=== PATIENT | female | born 1990 | race Caucasian/White ===

== ENCOUNTER 2019-03-24 09:24 | Emergency (ER) | payer MEDICAID, OTHER ==
[~2019-03-24] VITALS: Ht 160 cm; Wt 78.5 kg
[2019-03-24 09:37] VITALS: BP 125/76
== END 2019-03-24 10:02 | disposition home or self-care (01) ==
LOC: ER 09:28
DX: O9A.211 Injury, poisoning and certain other consequences of external causes complicating pregnancy, first trimester (principal); S80.861A Insect bite (nonvenomous), right lower leg, initial encounter; F31.9 Bipolar disorder, unspecified; E78.5 Hyperlipidemia, unspecified; Z3A.00 Weeks of gestation of pregnancy not specified; W57.XXXA Bitten or stung by nonvenomous insect and other nonvenomous arthropods, initial encounter; Y93.89 Activity, other specified; Y92.89 Other specified places as the place of occurrence of the external cause; Y99.8 Other external cause status